=== PATIENT | male | born 1960 | race Caucasian/White ===

== ENCOUNTER 2018-08-22 13:07 | Emergency (ER) | payer MEDICARE, MEDICAID ==
[~2018-08-22] VITALS: Ht 182.9 cm; Wt 204.1 kg
[~2018-08-22 13:07] MED LIST: BUM1T; MELO-61; METFSOL2; METO25TA4; PRILOSEC; TEMA15CA91; WARF4TAB31; [UNRECOGNIZED DRUG - OTHER]
[2018-08-22] MEDS ORDERED: EPINEPHrine HCL 1 MG/10 ML SYRG IV ONE (13:09)
[2018-08-22] MEDS ORDERED: CALCIUM CHLOR(10%) 100MG/ML 10ML SYRINGE IV ONE (13:09)
[2018-08-22] MEDS ORDERED: SODIUM BICARBONATE 8.4% INJ 50ML SYRINGE IV ONE (13:09)
[2018-08-22] MEDS ORDERED: EPINEPHrine HCL 1 MG/10 ML SYRG ONE ×3 (13:43→15:11)
[2018-08-22] MEDS ORDERED: SODIUM BICARBONATE 8.4% INJ 50ML SYRINGE ONE ×3 (13:44→15:51)
[2018-08-22 14:08] LABS: Hematocrit 18.5 % (41.0-53.0); Mean Corpuscular Hgb Conc. 27.9 g/dL (32.0-36.0); Platelet Count (auto) 224 10^3/uL (140-450); Red Blood Cells 2.34 10^6/uL (4.5-5.90); White Blood Cell 23.8 10^3/uL (4.4-10.8)
[2018-08-22] MEDS ORDERED: NOREPINEPHRINE 8 MG/250ML KIT 250 ML IV SCH (14:10)
[2018-08-22 14:16] LABS: Red Cell Distribution Width 20.9 % (11.8-14.3)
[2018-08-22 14:18] LABS: Hemoglobin 5.2 g/dL (13.5-17.5)
[2018-08-22 14:19] LABS: Basophils % (manual) 0 (0.0-2.0); Blast Cells 0; Eosinophils % (manual) 0 (0-7); Myelocytes % 0; Promyelocytes % 0; Reactive Lymphocytes 0
[2018-08-22 14:28] LABS: Albumin 1.7 g/dL (3.4-5.0); BUN/Creatinine Ratio 10.8; Magnesium 2.9 mg/dL (1.6-2.6)
[2018-08-22 14:33] LABS: Bilirubin, Total 0.4 mg/dL (0.2-1.0); Total Protein 5.1 g/dL (6.4-8.2)
[2018-08-22 14:46] LABS: Potassium 7.9 mmol/L (3.5-5.1)
[2018-08-22] MEDS ORDERED: FUROSEMIDE 40 MG/4 ML VIAL IV ONE (15:00)
[2018-08-22] MEDS ORDERED: SODIUM CHLORIDE 0.9% 1,000 ML IV ONE (15:00)
[2018-08-22] MEDS ORDERED: PHENYLEPHRINE INJ 20 MG in SODIUM CHL 0.9% 250 ML IV SCH (15:01)
[2018-08-22] MEDS ORDERED: cefTRIAXone 1GM/50ML D5W 50 ML IV ONE (15:15)
[2018-08-22] MEDS ORDERED: SODIUM CHLORIDE 0.9% IV ONE (15:45)
[2018-08-22] MEDS ORDERED: SODIUM BICARBONATE 8.4 % INJ 50ML VIAL IV ONE (16:00)
[2018-08-22 16:31] VITALS: BP 54/31
[2018-08-22 17:22] LABS: Lactic Acid w/Reflex 17.8 mmol/L (0.4-2.0)
[2018-08-22 18:11] LABS: Band Neutrophils % (manual) 5; Lymphocytes % (manual) 20 (10.0-50.0); Metamyelocytes % 2; Monocytes % (manual) 5 (0-12)
== END 2018-08-22 17:10 | disposition expired ==
LOC: EDBD 13:07 → ER 13:08
DX: I46.9 Cardiac arrest, cause unspecified (principal); A41.9 Sepsis, unspecified organism; E11.10 Type 2 diabetes mellitus with ketoacidosis without coma; E87.2 Acidosis; D64.9 Anemia, unspecified; E87.5 Hyperkalemia; E43 Unspecified severe protein-calorie malnutrition; R94.5 Abnormal results of liver function studies; I87.2 Venous insufficiency (chronic) (peripheral); N17.9 Acute kidney failure, unspecified; I48.91 Unspecified atrial fibrillation; E66.01 Morbid (severe) obesity due to excess calories; Z88.8 Allergy status to other drugs, medicaments and biological substances; Z68.44 Body mass index [BMI] 60.0-69.9, adult; Z79.84 Long term (current) use of oral hypoglycemic drugs; Z79.899 Other long term (current) drug therapy; Z79.01 Long term (current) use of anticoagulants; Z89.611 Acquired absence of right leg above knee
CPT/HCPCS: 31500; 36415; 36600; 71045; 80053; 82805; 83605; 83735; 84484; 85007; 85027; 86850; 86900; 86901; 86920; 87040; 87070; 87077; 87186; 87205; 92950; 93005; 94761; 96365; 96366; 99291; A6257; J0171; J0696; J1940; J2370; J7030; J7050; 94002; 96375